=== PATIENT | female | born 1975 | race Caucasian/White ===

== ENCOUNTER → 2018-11-24 | Outpatient (CLI) | payer BC, OTHER ==
--- NOTE | 2018-11-24 11:37 | Diagnostic Imaging Report ---
INDICATION: Routine screening. COMPARISON: 11/18/2017 and 06/30/2015. TECHNIQUE: 2D and 3D bilateral screening mammography was performed with CAD. FINDINGS: Both breasts are heterogeneously dense, limiting the sensitivity of mammography. The circumscribed nodule in the upper-outer right breast appears stable. The overall breast parenchymal pattern is stable. No spiculated mass or malignant appearing microcalcifications are seen. The axillae are unremarkable. IMPRESSION: No mammographic features suspicious for malignancy are identified. ACR BI-RADS Category 2: Benign findings. Result letter will be mailed to the patient. Note: At least 10% of breast cancer is not imaged by mammography. Dictated by: Dictated on workstation # [id number]
== END ==
LOC: RAD 07:43
PROVIDERS: ATTEND Family Medicine
DX: Z12.31 Encounter for screening mammogram for malignant neoplasm of breast (principal)
CPT/HCPCS: 77067

== ENCOUNTER → 2020-02-16 | Outpatient (CLI) | payer OTHER ==
[2020-02-16 07:47] LABS: BASOPHILS % (AUTO) 0 % (0-10); EOSINOPHILS # (AUTO) 0.2 10^3/uL (0.0-0.3); EOSINOPHILS % (AUTO) 3 % (0-10); HEMATOCRIT 33 % (35-52); HEMOGLOBIN 9.9 G/DL (11.5-16.0); LYMPHOCYTES # (AUTO) 1.7 X 10^3 (1.0-4.0); LYMPHOCYTES % (AUTO) 28 % (12-44); MEAN CORPUSCULAR HEMOGLOBIN 22 PG (25-34); MEAN CORPUSCULAR HGB CONC 30 G/DL (32-36); MEAN CORPUSCULAR VOLUME 73 FL (80-99); MEAN PLATELET VOLUME 9.2 FL (7.4-10.4); MONOCYTES # (AUTO) 0.4 X 10^3 (0.0-1.0); MONOCYTES % (AUTO) 7 % (0-12); NEUTROPHILS # (AUTO) 3.7 X 10^3 (1.8-7.8); NEUTROPHILS % (AUTO) 63 % (42-75); PLATELET COUNT 306 10^3/uL (130-400); RED CELL DISTRIBUTION WIDTH 18.4 % (10.0-14.5)
[2020-02-16 08:25] LABS: ALANINE AMINOTRANSFERASE 12 U/L (0-55); ALBUMIN 3.9 GM/DL (3.2-4.5); ALKALINE PHOSPHATASE 76 U/L (40-136); BILIRUBIN,TOTAL 0.4 MG/DL (0.1-1.0); BUN/CREATININE RATIO 18; CALCIUM 8.9 MG/DL (8.5-10.1); CARBON DIOXIDE 23 MMOL/L (21-32); CHLORIDE 106 MMOL/L (98-107); CHOLESTEROL 187 MG/DL (< 200); CREATININE SERUM 0.76 MG/DL (0.60-1.30); GFR ESTIMATED > 60; GLUCOSE 97 MG/DL (70-105); HDL CHOLESTEROL 56 MG/DL (40-60); SODIUM 138 MMOL/L (135-145); TRIGLYCERIDES 102 MG/DL (<150); VLDL CHOLESTEROL 20 MG/DL (5-40)
[2020-02-16 10:08] LABS: BILIRUBIN,URINE NEGATIVE (NEGATIVE); CLARITY,URINE SL CLOUDY; COLOR,URINE YELLOW; GLUCOSE, URINE (UA) NEGATIVE (NEGATIVE); KETONES,URINE NEGATIVE (NEGATIVE); LEUKOCYTE ESTERASE ,URINE NEGATIVE (NEGATIVE); NITRITE,URINE NEGATIVE (NEGATIVE); PROTEIN,URINE NEGATIVE (NEGATIVE)
[2020-02-16 10:21] LABS: BACTERIA,URINE TRACE /HPF; WBC,URINE RARE /HPF
== END ==
LOC: LAB 07:33
PROVIDERS: ATTEND Family Medicine
DX: E55.9 Vitamin D deficiency, unspecified (principal); I10 Essential (primary) hypertension; N92.0 Excessive and frequent menstruation with regular cycle
CPT/HCPCS: 36415; 80053; 80061; 81000; 82306; 82728; 83540; 84443; 85025

== ENCOUNTER → 2020-02-18 | Outpatient (CLI) | payer OTHER ==
--- NOTE | 2020-02-18 12:29 | Diagnostic Imaging Report ---
PROCEDURE: Pelvic complete, transabdominal and transvaginal sonogram. Limited pelvic doppler. TECHNIQUE: Multiple real-time grayscale images were obtained of the pelvis in various projections transabdominally and transvaginally. Limited pelvic duplex images were obtained. HISTORY: Heavy menses COMPARISON: None available. FINDINGS: The uterus is retroverted and is normal in size. It measures 8.5 x 5.6 x 6.6 cm. The endometrial stripe measures 1.8 cm in width. No color Doppler flow is seen within the endometrium. Endometrium is echogenic. Both ovaries are normal. The right ovary measures 3.5 x 2.9 x 3.1 cm and the left ovary measures 2.5 x 2.3 x 2.2 cm. Duplex images reveal normal arterial inflow to both ovaries. There is no free pelvic fluid. IMPRESSION: 1. Thick-walled and echogenic endometrium without internal Doppler flow. This may represent blood within the endometrial cavity versus endometrial hyperplasia or malignancy. Gynecologic evaluation is warranted. Dictated by: Dictated on workstation # [id number]
== END ==
LOC: RAD 11:05
PROVIDERS: ATTEND Family Medicine
DX: N92.0 Excessive and frequent menstruation with regular cycle (principal)
CPT/HCPCS: 76830; 76856

== ENCOUNTER 2020-02-26 06:32 | Outpatient (RCR) | payer OTHER ==
[2020-02-24 13:13] LABS: BILIRUBIN,URINE NEGATIVE (NEGATIVE); CLARITY,URINE CLEAR; COLOR,URINE YELLOW; GLUCOSE, URINE (UA) NEGATIVE (NEGATIVE); KETONES,URINE NEGATIVE (NEGATIVE); NITRITE,URINE NEGATIVE (NEGATIVE); PH,URINE 5.5 (5-9); PROTEIN,URINE NEGATIVE (NEGATIVE)
[2020-02-24 13:14] LABS: LEUKOCYTE ESTERASE ,URINE 2+ (NEGATIVE)
[2020-02-24 13:24] LABS: BACTERIA,URINE FEW /HPF; RBC,URINE RARE /HPF; YEAST,URINE FEW /HPF
[~2020-02-26] VITALS: Ht 167.7 cm; Wt 122.7 kg
[~2020-02-26 06:32] MED LIST: CITA20TA9 PO; ESOM40CA52 PO; FERR142T14 PO; MEDR10TA9 PO; METO50TA7 PO; MULT-884 PO; NAPR220C61 PO; vitamin d PO
== END 2020-02-26 15:45 | disposition home or self-care (01) ==
LOC: PREOP 06:32
PROVIDERS: ATTEND Obstetrics & Gynecology
DX: Z01.818 Encounter for other preprocedural examination (principal); Z01.812 Encounter for preprocedural laboratory examination; N92.0 Excessive and frequent menstruation with regular cycle; D64.9 Anemia, unspecified; N84.0 Polyp of corpus uteri; N81.9 Female genital prolapse, unspecified; Z11.2 Encounter for screening for other bacterial diseases; Z11.59 Encounter for screening for other viral diseases
CPT/HCPCS: 81000; 87081; 87088; 87635

== ENCOUNTER → 2020-03-22 | Outpatient (CLI) | payer OTHER ==
[~2020-03-22] MED LIST changes: +ACET-93 PO; +IBUP-844 PO; +OXYC5TAB96 PO; +SIME80TA16 PO
--- NOTE | 2020-03-22 19:37 | Diagnostic Imaging Report ---
EXAM: Bilateral screening mammogram. COMPARISON: 11/24/2018, 11/18/2017 and 06/30/2015. There are no current complaints. The current study was also evaluated with a Computer Aided Detection (CAD) system. FINDINGS: The fibroglandular tissue in both breasts is heterogeneously dense. This does limit the sensitivity of this exam. Overall, there does not appear to have been any significant change when compared to the prior study. No primary or secondary sign of malignancy is noted. IMPRESSION: There is no radiographic evidence for malignancy. ACR BI-RADS Category 1: Negative. Result letter will be mailed to the patient. Note: At least 10% of breast cancer is not imaged by mammography. Dictated by: Dictated on workstation # [id number]
== END ==
LOC: RAD 07:23
PROVIDERS: ATTEND Family Medicine
DX: Z12.31 Encounter for screening mammogram for malignant neoplasm of breast (principal)
CPT/HCPCS: 77063; 77067

== ENCOUNTER → 2020-04-08 | Outpatient (CLI) | payer OTHER ==
--- NOTE | 2020-04-08 08:57 | Diagnostic Imaging Report ---
INDICATION: Distal fibular fracture. TIME OF EXAM: 8:50 AM No prior studies available for comparison. 3 views of the left ankle demonstrate an obliquely oriented fracture through the distal fibula. No significant displacement or angulation is seen. Mortise is well-maintained. Talar dome is smooth. There is a large plantar calcaneal spur. IMPRESSION: Nondisplaced obliquely oriented distal fibular fracture. Dictated by: Dictated on workstation # [id number]
== END ==
LOC: ORTHO 07:39
PROVIDERS: ATTEND Orthopaedic Surgery
DX: S82.65XA Nondisplaced fracture of lateral malleolus of left fibula, initial encounter for closed fracture (principal)
CPT/HCPCS: 73610

== ENCOUNTER → 2020-04-21 | Outpatient (CLI) | payer OTHER ==
--- NOTE | 2020-04-21 12:15 | Diagnostic Imaging Report ---
INDICATION: FRACTURE OF DISTAL FIBULA COMPARISON: 04/08/2020. FINDINGS: 3 radiographic views of the left ankle were obtained. Nonacute comminuted fracture of the distal fibula is again identified. Fracture lines are less conspicuous. There does appear to be some interval callus formation suggestive of partial interval healing. No new acute fracture or dislocation is seen. Joint spaces are intact. No unexpected radiopaque foreign bodies are identified. IMPRESSION: 1. Partially healed distal fibular fracture as described above. Dictated by: Dictated on workstation # [id number]
== END ==
LOC: ORTHO 10:47
PROVIDERS: ATTEND Orthopaedic Surgery
DX: S82.65XA Nondisplaced fracture of lateral malleolus of left fibula, initial encounter for closed fracture (principal)
CPT/HCPCS: 73610

== ENCOUNTER → 2020-05-13 | Outpatient (CLI) | payer OTHER ==
--- NOTE | 2020-05-13 11:23 | Diagnostic Imaging Report ---
EXAMINATION: Left ankle, 3 views INDICATION: Follow-up of distal fibular fracture. COMPARISON: Multiple priors, most recent performed on 04/21/2020. FINDINGS: Please note that the films are incorrectly labeled as being the right ankle, when in fact the left ankle is imaged. Continued healing of the previously demonstrated distal fibular fracture, with the fracture line now much less evident. No significant displacement is appreciated. There is no pronounced periosteal reaction. No new fracture or osseous abnormality is demonstrated. The ankle mortise is intact, including the medial and lateral clear space. No osteochondral lesion of the talar dome. There is mild persistent edema in the ankle soft tissues. Incidental note is made of an inferior calcaneal spur. IMPRESSION: Continued healing of left distal fibular fracture. No new fracture or acute osseous abnormality is appreciated. Dictated by: Dictated on workstation # [id number]
== END ==
LOC: RAD 10:15
PROVIDERS: ATTEND Orthopaedic Surgery
DX: S82.65XD Nondisplaced fracture of lateral malleolus of left fibula, subsequent encounter for closed fracture with routine healing (principal); X58.XXXD Exposure to other specified factors, subsequent encounter
CPT/HCPCS: 73610

== ENCOUNTER → 2020-06-14 | Outpatient (CLI) | payer OTHER ==
[2020-06-14 12:46] LABS: BASOPHILS % (AUTO) 0 % (0-10); EOSINOPHILS # (AUTO) 0.4 10^3/uL (0.0-0.3); EOSINOPHILS % (AUTO) 3 % (0-10); HEMATOCRIT 42 % (35-52); HEMOGLOBIN 13.9 G/DL (11.5-16.0); LYMPHOCYTES % (AUTO) 22 % (12-44); MEAN CORPUSCULAR HEMOGLOBIN 29 PG (25-34); MEAN CORPUSCULAR HGB CONC 34 G/DL (32-36); MEAN CORPUSCULAR VOLUME 85 FL (80-99); MEAN PLATELET VOLUME 10.4 FL (7.4-10.4); MONOCYTES # (AUTO) 0.7 X 10^3 (0.0-1.0); MONOCYTES % (AUTO) 5 % (0-12); NEUTROPHILS # (AUTO) 9.2 X 10^3 (1.8-7.8); NEUTROPHILS % (AUTO) 70 % (42-75); PLATELET COUNT 278 10^3/uL (130-400); RED CELL DISTRIBUTION WIDTH 15.6 % (10.0-14.5); WHITE BLOOD COUNT 13.2 10^3/uL (4.3-11.0)
== END ==
LOC: LAB 12:16
PROVIDERS: ATTEND Family Medicine
DX: D64.9 Anemia, unspecified (principal); E55.9 Vitamin D deficiency, unspecified
CPT/HCPCS: 36415; 82306; 85025

== ENCOUNTER → 2021-11-14 | Outpatient (CLI) | payer OTHER ==
[~2021-11-14] MED LIST changes: +OXC5T PO; -OXYC5TAB96 PO
--- NOTE | 2021-11-14 14:23 | Diagnostic Imaging Report ---
INDICATION: Routine screening. COMPARISON is made with prior mammograms from 03/22/2020 and 11/24/2018. 2-D and 3-D bilateral screening mammography was performed with CAD. Both breasts are heterogeneously dense, limiting the sensitivity of mammography. Intraparenchymal lymph node in the upper outer right breast appears stable. No spiculated mass or malignant-appearing microcalcifications are seen. Axillae are unremarkable. IMPRESSION: BI-RADS Category 2 No mammographic features suspicious for malignancy are identified. ACR BI-RADS Category 2: Benign findings. Result letter will be mailed to the patient. Note: At least 10% of breast cancer is not imaged by mammography. Dictated by: Dictated on workstation # [id number]
== END ==
LOC: RAD 07:20
PROVIDERS: ATTEND Obstetrics & Gynecology
DX: Z12.31 Encounter for screening mammogram for malignant neoplasm of breast (principal)
CPT/HCPCS: 77063; 77067

== ENCOUNTER → 2022-01-18 | Outpatient (CLI) | payer OTHER | LOC: ORTHO 14:46 | PROVIDERS: ATTEND Orthopaedic Surgery | DX: M17.0 Bilateral primary osteoarthritis of knee (principal) ==

== ENCOUNTER → 2022-03-14 | Outpatient (CLI) | payer OTHER ==
[~2022-03-14] MED LIST changes: +BARIUM for suspension 96% w/w (Vanilla Silq Medium Density) PO ONE; +BARIUM for suspension 98% w/w (Vanilla Silq High Density) PO ONE
--- NOTE | 2022-03-14 12:07 | Diagnostic Imaging Report ---
Indication: Preop for gastric surgery. Patient ingested effervescent crystals as well as thin and thick barium and imaging of the esophagus, stomach and proximal small bowel was performed in multiple obliquities. Total of 1.1 minutes of fluoroscopy time was utilized. 37 images were obtained. Preliminary radiograph of the abdomen is unremarkable. Esophagus has a smooth contour. No mass or strictures identified. There does appear to be a very small sliding-type hiatal hernia. No reflux was demonstrated. The stomach has normal configuration. There is normal emptying of contrast into the small bowel. Small bowel loops appear to be normal caliber. The duodenal bulb is without deformity. IMPRESSION: Small hiatal hernia. No other significant abnormalities detected. Dictated by: Dictated on workstation # [id number]
== END ==
LOC: RAD 03-07 09:00
PROVIDERS: ATTEND Surgery
DX: Z01.818 Encounter for other preprocedural examination (principal); K44.9 Diaphragmatic hernia without obstruction or gangrene
CPT/HCPCS: 74246

== ENCOUNTER 2022-04-25 07:55 | Outpatient (CLI) | payer OTHER ==
[~2022-04-25] VITALS: Ht 167 cm; Wt 136.0 kg
[~2022-04-25 07:55] MED LIST changes: -BARIUM for suspension 96% w/w (Vanilla Silq Medium Density) PO ONE; -BARIUM for suspension 98% w/w (Vanilla Silq High Density) PO ONE
[2022-04-25] MEDS ORDERED: NAPR220C11 PO (12:01)
[2022-04-25] MEDS ORDERED: BIOT1TAB PO (12:01)
[2022-04-25] MEDS ORDERED: PED18TAB2 PO (12:01)
[2022-04-25] MEDS ORDERED: CALC-939 PO (12:01)
[2022-04-25] MEDS ORDERED: FLUO20CA42 PO (12:01)
[2022-04-25] MEDS ORDERED: ASPI81TA16 PO (12:01)
== END 2022-04-25 12:17 | disposition home or self-care (01) ==
LOC: PREOP 07:55
PROVIDERS: ATTEND Surgery
DX: Z01.818 Encounter for other preprocedural examination (principal)

== ENCOUNTER 2022-04-26 11:48 | Day surgery (SDC) | payer OTHER ==
--- NOTE | 2022-04-24 20:16 | HISTORY AND PHYSICAL ---
DATE OF SERVICE: PROCEDURE DATE: 04/26/2022 ATTENDING PRIMARY CARE PHYSICIAN: Dr. Zenaida Parker. HISTORY OF PRESENT ILLNESS: The patient is a 47-year-old female with morbid obesity, who is interested in the laparoscopic gastric sleeve resection and meets the medical criteria for bariatric surgery. She reports that she began gaining the majority of her adult weight over the past 25 to 30 years when she started college. She reports that over time, she has gradually gained weight. She reports that she has tried diets in the past such as a low calorie as well as a Kido diet and reports that she did lose some weight with a low calorie diet. She also reports that she has tried exercises in the past such as recumbent bike, resistance weight training, elliptical and walking and again reports that she would lose some weight with exercise; however, would regain this weight back. She reports that she has also tried medications phentermine in the past and reports that she would lose some weight back, but after stopping the medication, she would regain her weight back. Her medical comorbidities related to obesity include degenerative joint disease of the knees, hypertension, gastroesophageal reflux disease, and depression. MEDICAL HISTORY: Degenerative joint disease of the knees, hypertension, gastroesophageal reflux disease, vitamin D deficiency, depression. PAST SURGICAL HISTORY: Right eye surgery at age 1 in 1975, partial hysterectomy in 2019. ALLERGIES: No known drug allergies. MEDICATIONS: Aspirin 81 mg daily, Osteo Bi-Flex, multivitamin, Nexium 40 mg daily, fluoxetine, vitamin D weekly, metoprolol 50 mg b.i.d., losartan potassium 100 mg daily. SOCIAL HISTORY: Previous for tobacco smoke half a pack per day for 20 years, quit in 2020. Social for alcohol. FAMILY HISTORY: Maternal grandmother, breast cancer, sister DVT. VITAL SIGNS: Blood pressure is 136/70. Current weight is 310 pounds at 5 feet 6 inches with a body mass index of 50.0. REVIEW OF SYSTEMS: This is a well-nourished female in no acute distress. She is not experiencing any shortness of breath or difficulty breathing. No chest pain, palpitations or diaphoresis. No nausea, vomiting or abdominal pain. No diarrhea or constipation. No red blood per rectum nor any dark tarry stools. No fever or chills. No recent inadvertent weight loss. All other review of systems negative. PHYSICAL EXAMINATION: CHEST: Clear. Good breath sounds bilaterally. HEART: Regular, no murmurs. EXTREMITIES: No lower extremity edema. Negative Homans sign. HEENT: No scleral icterus. NECK: No cervical lymphadenopathy. ABDOMEN: Soft, nontender, nondistended. SKIN: Warm, dry and pink. NEUROLOGIC: Awake, alert and oriented x3. ASSESSMENT AND PLAN: A 47-year-old female with morbid obesity and medical comorbidities related to obesity including degenerative joint disease of the knees, hypertension, gastroesophageal reflux disease, and depression. She is interested in the laparoscopic gastric sleeve resection and does meet the medical criteria for bariatric surgery. At this time, we will proceed with the necessary tests and evaluations including an overnight oximetry study, upper GI contrast study, nutrition and psychology consult, clearance from her primary care physician as well as physician monitored dieting. If the overnight oximetry study does show any abnormalities and we will proceed with a formal sleep study for proper diagnosis and treatment of obstructive sleep apnea. Once we have obtained all the necessary tests and evaluations, then we will proceed with scheduling her for a laparoscopic gastric sleeve resection. The risks and benefits of the procedure as well as the procedure and home care instructions were explained to the patient. It was also discussed with her in depth about preoperative as well as postoperative diet and exercise. She verbalized understanding of instructions and agrees to proceed as planned. At this time, we will proceed with the necessary tests and evaluations and once she has completed these, we will schedule her for the laparoscopic gastric sleeve resection. Job ID: [id number] DocumentID: [id number] Dictated Date: 04/20/2022 09:37:35 Sales Support Manager Date: 04/20/2022 13:22:28 Dictated By: LEATHA BARNES APRN
[~2022-04-26] VITALS: Ht 167 cm; Wt 140.8 kg
[2022-04-26] VITALS (12 sets, daily range): BP systolic 91–131; BP diastolic 48–86
[~2022-04-26 11:48] MED LIST changes: +ASPI81TA16 PO; +BIOT1TAB PO; +CALC-939 PO; +FLUO20CA42 PO; +NAPR220C11 PO; +PED18TAB2 PO
--- NOTE | 2022-04-26 11:55 | Progress Note-Pre Operative ---
Pre-Operative Progress Note H&P Reviewed The H&P was reviewed, patient examined and no changes noted. Date Seen by Provider: Apr 26, 2022 Time Seen by Provider: 11:54 Date H&P Reviewed: Apr 26, 2022 Time H&P Reviewed: 11:50 Pre-Operative Diagnosis: Morbid obesity, HTN, GERD, Depression, degenerative joint disease of knees LEATHA BARNES APRN Apr 26, 2022 11:55
[2022-04-26] MEDS ORDERED: LACTATED RINGERS 1,000 ML IV PRN (12:15)
[2022-04-26] MEDS ORDERED: ceFAZolin 2 GM IV Premixed 50 ML IV ONE (12:15)
[2022-04-26] MEDS: LACTATED RINGERS 1,000 ML IV PRN ×2 (12:32→16:18)
[2022-04-26] MEDS ORDERED: BUP/EPI 0.5% 1:200,000 (MARCAINE) 10ML VIAL IJ ONE (14:08)
[2022-04-26] MEDS ORDERED: ONDANSETRON 4 MG/2 ML (SDV) Z0FRAN IV PRN (14:15)
[2022-04-26] MEDS ORDERED: fentaNYL INJ 1,000 MCG in NS (IVPB) 80 ML IV SCH (14:15)
[2022-04-26] MEDS ORDERED: NS IV 1000 ML 1,000 ML IV SCH (14:15)
[2022-04-26] MEDS ORDERED: diphenhydrAMINE 50 MG/ML INJ (BENADRYL) IVP PRN (14:15)
[2022-04-26] MEDS ORDERED: diphenhydrAMINE 50 MG/ML INJ (BENADRYL) IV PRN (14:15)
[2022-04-26] MEDS ORDERED: METOCLOPRAMIDE INJ 10 MG/2 ML (REGLAN) IV PRN (14:15)
[2022-04-26] MEDS ORDERED: NALOXONE 0.4 MG/ML 1 ML (NARCAN) VIAL IV PRN (14:15)
[2022-04-26] MEDS ORDERED: ONDANSETRON 4 MG/2 ML (SDV) Z0FRAN ONE (14:17)
[2022-04-26] MEDS ORDERED: fentaNYL INJ 100 MCG/2 ML AMP ONE (14:17)
[2022-04-26] MEDS ORDERED: LIDOCAINE PF 2% 5 ML (XYLOCAINE) VIAL ONE (14:17)
[2022-04-26] MEDS ORDERED: ROCURONIUM 50 MG/5 ML (ZEMURON) VIAL IV ONE (14:17)
[2022-04-26] MEDS ORDERED: proPOfol 200 MG/20 ML (DIPRIVAN) VIAL IV ONE (14:17)
[2022-04-26] MEDS ORDERED: MIDAZOLAM 2 MG/2 ML (VERSED) VIAL ONE (14:18)
[2022-04-26] MEDS ORDERED: GLYCOPYRROLATE 0.2 MG/ML (ROBINUL) 2 ML VIAL ONE (15:51)
[2022-04-26] MEDS ORDERED: HYDROmorphone 2 MG/ML VIAL (DILAUDID) ONE ×2 (15:55→17:25)
[2022-04-26] MEDS ORDERED: SUGAMMADEX 500 MG/5 ML VIAL (BRIDION) IV ONE (16:25)
[2022-04-26] MEDS ORDERED: SEVOFLURANE (ULTANE) 15 ML INHAL SOLN ONE (16:26)
[2022-04-26] MEDS ORDERED: KETOROLAC 30 MG/ML VIAL ONE (16:39)
--- NOTE | 2022-04-26 16:44 | Progress Note-Post Operative ---
Post-Operative Progess Note Surgeon (s)/Trolley Wire Installer (s) Surgeon KLELY HARRISON MD Trolley Wire Installer: светлана sequeira SHOWROOM CONSULTANT Pre-Operative Diagnosis Morbid obesity, HTN, GERD, Depression, degenerative joint disease of knees Post-Operative Diagnosis same Procedure & Operative Findings Date of Procedure 04/26/22 Procedure Performed/Findings laparoscopic gastric sleeve resection. Anesthesia Type get Estimated Blood Loss Estimated blood loss (mL): minimal Specimens/Packing Specimens Removed stomach KELLY HARRISON MD Apr 26, 2022 16:44
--- NOTE | 2022-04-26 16:45 | Discharge Inst-Surgical ---
D/C Lap Instructions-HUNTER Follow Up Appt in 2 weeks Activity as tolerated No driving for 24 hours No driving while on pain medications Incentive Spirometry use every 2 hours while awake Phase 1 clear liquid diet for next 2 weeks. Symptoms to Report: Fever over 101 degree F, Nausea/Vomiting Infection Signs and Symptoms to report: Increased redness, Foul odor of wound, Increased drainage Bathing instructions: May shower Operative Area Clean/Dry; Keep incision clean/dry If any problems/questions: Contact your physician or go to Emergency Room KELLY HARRISON MD Apr 26, 2022 16:45
[2022-04-26] MEDS ORDERED: HYDROmorphone 2 MG/ML VIAL (DILAUDID) IV ONE (17:00)
[2022-04-26] MEDS ORDERED: ONDANSETRON 4 MG/2 ML (SDV) Z0FRAN IVP PRN (17:00)
[2022-04-26] MEDS: METOCLOPRAMIDE INJ 10 MG/2 ML (REGLAN) IVP SCH ×2 (18:33→23:10)
[2022-04-26] MEDS: 1/2 NS W/KCL 20 MEQ/L 1,000 ML IV SCH ×2 (18:33→22:15)
[2022-04-26] MEDS: ONDANSETRON 4 MG/2 ML (SDV) Z0FRAN IVP SCH ×2 (18:34→23:10)
[2022-04-26] MEDS: metroNIDAZOLE 500MG/100ML IVPB 100 ML IV SCH (18:34)
[2022-04-26] MEDS ORDERED: LACTATED RINGERS 1,000 ML IV ONE (21:30)
[2022-04-26] MEDS: ceFAZolin 2 GM IV Premixed 50 ML IV SCH (22:16)
[2022-04-26] MEDS: ENOXAPARIN 40 MG/0.4 ML (LOVENOX) SYR SC SCH (22:16)
[2022-04-27] VITALS (7 sets, daily range): BP systolic 92–120; BP diastolic 54–64
[2022-04-27] MEDS: RT-ALBUTEROL SULF 2.5 MG/3 ML PRE-MIX VIAL INH SCH ×4 (00:55→22:49)
[2022-04-27] MEDS: metroNIDAZOLE 500MG/100ML IVPB 100 ML IV SCH ×2 (02:20→11:07)
[2022-04-27] MEDS ORDERED: LACTATED RINGERS 1,000 ML IV ONE (03:30)
[2022-04-27] MEDS: 1/2 NS W/KCL 20 MEQ/L 1,000 ML IV SCH ×4 (03:35→21:21)
--- NOTE | 2022-04-27 04:35 | OPERATIVE REPORT ---
DATE OF SERVICE: 04/26/2022 ATTENDING PRIMARY CARE PHYSICIAN: Zenaida Parker MD PREOPERATIVE DIAGNOSES: Morbid obesity, hypertension, gastroesophageal reflux disease and degenerative joint disease. POSTOPERATIVE DIAGNOSES: Morbid obesity, hypertension, gastroesophageal reflux disease and degenerative joint disease. PROCEDURE: Laparoscopic gastric sleeve resection. SURGEON: Kelly Harrison MD. OPERATIONAL RISK MANAGER: Senthil Galindo APRN. ANESTHESIA: General endotracheal. ESTIMATED BLOOD LOSS: Minimal. FINDINGS: Hepatomegaly. DISPOSITION: The patient tolerated the procedure well. INDICATIONS: The patient is a 47-year-old female who is in our surgical weight loss program for the gastric sleeve resection and does meet the medical criteria for bariatric surgery. She reports that she began to gain the majority of her adult weight, approximately 25 years ago when she started college. She states that over time, she has gradually gained more weight. She has tried a number of diet and exercise attempts with no success. She has tried diet programs including low-calorie diets, ketogenic diet, and reported losing some weight; however, would regain the weight back. She has also tried exercise regimens including recumbent bike, resistance weight training, elliptical dog trainer, treadmill and again would lose some weight with the exercise; however, would regain this back. She has also tried medications including phentermine however, after discontinuation of medication would regain her weight back. Her medical comorbidities related to her obesity include hypertension, degenerative joint disease, gastroesophageal reflux disease, and depression. DESCRIPTION OF PROCEDURE: The patient was brought to the operating room, laid supine on the table. After adequate IV pain and sedative medications and general endotracheal intubation, the abdomen was prepped and draped in standard surgical fashion. A 0.5% Marcaine with epinephrine was then used to anesthetize the overlying skin in the left upper abdominal quadrant and a transverse skin incision made using a 15 blade. An 0 silk suture was applied to the medial aspect incision for retraction and a Veress needle inserted with a low opening pressure of 0 mmHg and the abdomen was then insufflated to 15 mmHg pressure. The Veress needle removed and a 5 mm XL trocar placed followed by a 5 mm 45-degree angle laparoscope visualizing the peritoneal cavity. A 4-quadrant abdominal exploration was performed. There was hepatomegaly, mild liver steatosis. No hiatal hernia identified. Under direct visualization, we then proceeded to place a midabdominal left to midline 10 mm port after the skin and peritoneal lining were anesthetized using 0.5% Marcaine with epinephrine and a transverse skin incision made using a 15 blade. In a similar manner, a midabdominal right of midline 15 mm port was placed followed by a right upper abdominal quadrant 5 mm port. The epigastric region was then anesthetized and a transverse skin incision made using 11 blade. A tract was then created through the abdominal wall layers using a trocar to a 5 mm port and through this opening, a medium sized Nathansen liver retractor was placed and the left lobe of the liver retracted anteriorly and superiorly. The patient was then placed in steep reverse Trendelenburg position. We then measured 6 cm from the pylorus along the greater curvature and marked this area with a marking pen. We then proceeded to dissect the gastrocolic ligament next to the stomach using the Sonicision entering the lesser sac. We first proceeded with inferior dissection until we were approximately 2 cm below our marking. We then proceeded cephalad taking the short gastric vessels. The angle of his connective tissue fibers as well as the posterior stomach were then dissected until the left nathan of the diaphragm was identified with visualization of good hemostasis. A 36-Kinyarwanda ViSiGi gastric tube was then placed and directed into the pylorus under direct visualization. Using this as a staple line guide, we then proceeded with our gastric sleeve resection, we first proceeded with a 45 mm black load. This was then followed by 160 mm black load followed by 360 mm purple loads leaving approximately 2 cm next to the gastroesophageal junction and completing our gastric sleeve resection. At the staple line corners, clips were placed with 5 mm clips. A leak test was then performed to 35 mmHg air through the ViSiGi with no leak identified. Tisseel fibrin glue was then placed onto the staple line and the omentum placed onto the staple line. The stomach was then removed through the 15 mm port site. The fascia and peritoneum to the 10 and 15 mm port sites were then closed under direct visualization using a Diallo-Julito device and 0 Vicryl suture. The abdomen was desufflated and remaining ports removed. All skin incisions were closed using 4-0 Monocryl running subcuticular sutures. Wounds were then cleaned and covered with Dermabond. The patient tolerated the procedure well. We will admit her 23-hour observation and proceed with DVT prophylaxis with early ambulation, calf SCDs as well as Lovenox injections. She may also have ice chips today and tomorrow morning, we will start a phase 1 clear liquid diet and when she is able to tolerate 60 mL of fluids every 30 minutes, has adequate pain control with oral pain medication and is ambulating well, we will then discharge her home and where she will be instructed to proceed with a phase 1 clear liquid diet for the next 2 weeks. She obviously will be instructed to do no heavy lifting or exertion for the next two weeks as well. Job ID: [id number] DocumentID: [id number] Dictated Date: 04/26/2022 16:56:07 Deputy District Customs Director Date: 04/27/2022 04:35:11 Dictated By: KELLY HARRISON MD
[2022-04-27] MEDS: ceFAZolin 2 GM IV Premixed 50 ML IV SCH ×2 (05:06→15:42)
[2022-04-27] MEDS: METOCLOPRAMIDE INJ 10 MG/2 ML (REGLAN) IVP SCH ×2 (05:07→11:07)
[2022-04-27] MEDS: ONDANSETRON 4 MG/2 ML (SDV) Z0FRAN IVP SCH ×2 (05:07→10:26)
[2022-04-27 05:33] LABS: HEMATOCRIT 37 % (35-52); HEMOGLOBIN 12.2 g/dL (11.5-16.0); MEAN CORPUSCULAR HEMOGLOBIN 31 pg (25-34); MEAN CORPUSCULAR HGB CONC 33 g/dL (32-36); MEAN CORPUSCULAR VOLUME 93 fL (80-99); MEAN PLATELET VOLUME 11.7 fL (9.0-12.2); PLATELET COUNT 199 10^3/uL (130-400); WHITE BLOOD COUNT 9.8 10^3/uL (4.3-11.0)
[2022-04-27] MEDS: SENNA W/DOCUSATE (SENOKOT S) TABLET PO SCH (08:27)
[2022-04-27] MEDS: ENOXAPARIN 40 MG/0.4 ML (LOVENOX) SYR SC SCH (08:28)
[2022-04-27] MEDS: PANTOPRAZOLE 40 MG (PROTONIX) VIAL IV SCH (08:31)
--- NOTE | 2022-04-27 10:40 | Anesthesia-General Post-Op ---
General Patient Condition Mental Status/LOC: Same as Preop Cardiovascular: Satisfactory Nausea/Vomiting: Absent Respiratory: Satisfactory Pain: Controlled Complications: Absent Post Op Complications Complications None Follow Up Care/Instructions Patient Instructions None needed. Anesthesia/Patient Condition Patient Condition Patient is doing well, no complaints, stable vital signs, no apparent adverse anesthesia problems. No complications reported per nursing. EVANGELIST MARX CRNA Apr 27, 2022 10:40
[2022-04-27] MEDS ORDERED: METOCLOPRAMIDE INJ 10 MG/2 ML (REGLAN) IVP PRN (14:15)
[2022-04-27] MEDS: ENOXAPARIN 60 MG/0.6 ML (LOVENOX) SYR SC SCH (21:21)
--- NOTE | 2022-04-27 23:05 | Progress Note ---
Subjective Date Seen by a Provider: Apr 27, 2022 Time Seen by a Provider: 11:00 Subjective/Events-last exam up in chair. moderate nausea. just starting phase I clear liquids.pain c ontrolled with fiscal agent however has not started PO meds. no fever/chills. Objective Exam Vital Signs Date Time Temp Pulse Resp B/P (MAP) Pulse Ox O2 Delivery O2 Flow Rate FiO2 04/27/22 22:49 90 Room Air 04/27/22 20:09 95 Room Air 04/27/22 19:04 37.2 72 20 117/56 (76) 94 Room Air 04/27/22 15:19 36.8 71 20 104/55 (71) 94 Room Air 04/27/22 15:07 95 Room Air 04/27/22 12:57 37.0 62 16 120/56 (77) 94 Room Air 04/27/22 08:00 97 Nasal Cannula 1.00 04/27/22 08:00 37.5 76 18 108/54 (72) 94 Room Air 04/27/22 06:55 94 Room Air 04/27/22 05:36 18 04/27/22 05:16 98/64 (75) 04/27/22 03:24 37.2 60 16 92/57 (69) 92 Room Air 04/26/22 23:37 36.8 61 18 92/61 (71) 93 Room Air I & O 04/27/22 07:00 Intake Total 1660 ml Output Total 755 ml Balance 905 ml Capillary Refill : General Appearance: No Apparent Distress HEENT: PERRL/EOMI Respiratory: Chest Non Tender, Decreased Breath Sounds Cardiovascular: Regular Rate, Rhythm Gastrointestinal: soft, tenderness Extremity: Normal Capillary Refill Neurologic/Psychiatric: Alert, Oriented x3 Skin: Normal Color Lymphatic: No Adenopathy Results Lab Laboratory Tests 04/27/22 04:58: White Blood Count 9.8, Red Blood Count 3.97, Hemoglobin 12.2, Hematocrit 37, Mean Corpuscular Volume 93, Mean Corpuscular Hemoglobin 31, Mean Corpuscular Hemoglobin Concent 33, Red Cell Distribution Width 13.0, Platelet Count 199, Mean Platelet Volume 11.7 Microbiology 04/26/22 MRSA Screen - Final, Complete MRSA not isolated Assessment/Plan Assessment/Plan Assess & Plan/Chief Complaint s/p lap gastric sleeve resection. increase ambulation. encourage more PO liquid intake. transition to PO pain meds. KELLY HARRISON MD Apr 27, 2022 23:05
[2022-04-28 03:05] VITALS: BP 123/58
[2022-04-28] MEDS: ONDANSETRON 4 MG/2 ML (SDV) Z0FRAN IVP PRN ×2 (03:12→09:40)
[2022-04-28] MEDS: 1/2 NS W/KCL 20 MEQ/L 1,000 ML IV SCH (03:12)
[2022-04-28 07:15] VITALS: BP 132/70
[2022-04-28] MEDS: RT-ALBUTEROL SULF 2.5 MG/3 ML PRE-MIX VIAL INH SCH (07:45)
[2022-04-28] MEDS: PANTOPRAZOLE 40 MG (PROTONIX) VIAL IV SCH (08:34)
[2022-04-28] MEDS: ENOXAPARIN 60 MG/0.6 ML (LOVENOX) SYR SC SCH (08:35)
[2022-04-28] MEDS: SENNA W/DOCUSATE (SENOKOT S) TABLET PO SCH (08:35)
[2022-04-28 11:04] VITALS: BP 151/68
--- NOTE | 2022-04-28 11:18 | Progress Note ---
Subjective Date Seen by a Provider: Apr 28, 2022 Time Seen by a Provider: 10:30 Subjective/Events-last exam Patient reports doing well. Having nausea but no vomiting. Tolerating clear liquid diet and ambulating. Objective Exam Vital Signs Date Time Temp Pulse Resp B/P (MAP) Pulse Ox O2 Delivery O2 Flow Rate FiO2 04/28/22 11:04 151/68 Room Air 0.00 0 04/28/22 08:05 92 Room Air 1.00 04/28/22 08:02 90 Room Air 04/28/22 07:15 36.8 74 20 132/70 (90) 92 Room Air 04/28/22 06:02 18 04/28/22 03:05 36.4 78 20 123/58 (79) 92 Room Air 04/27/22 23:14 36.9 93 20 106/59 (75) 93 Room Air 04/27/22 22:49 90 Room Air 04/27/22 20:09 95 Room Air 04/27/22 19:04 37.2 72 20 117/56 (76) 94 Room Air 04/27/22 15:19 36.8 71 20 104/55 (71) 94 Room Air 04/27/22 15:07 95 Room Air 04/27/22 12:57 37.0 62 16 120/56 (77) 94 Room Air I & O 04/28/22 07:00 Intake Total 1380 ml Output Total 450 ml Balance 930 ml Capillary Refill : General Appearance: No Apparent Distress, WD/WN Neck: Normal Inspection, Supple Respiratory: No Accessory Muscle Use, No Respiratory Distress Cardiovascular: Regular Rate, Rhythm, No Edema Gastrointestinal: normal bowel sounds, soft, tenderness, other (Abdominal incisions C/D/I) Extremity: Normal Inspection, Normal Range of Motion Neurologic/Psychiatric: Alert, Oriented x3 Results Lab Microbiology 04/26/22 MRSA Screen - Final, Complete MRSA not isolated Assessment/Plan Assessment/Plan Assess & Plan/Chief Complaint A 47 year old female with morbid obesity, HTN, GERD who is S/P lap gastric sleeve VSS Tolerating diet and ambulating Continue clear liquid diet as directed Ambulation OK to DC home LEATHA BARNES FOOT DRILL OPERATOR Apr 28, 2022 11:18
== END 2022-04-28 11:11 | disposition home or self-care (01) ==
LOC: SDC 11:48 → 4TH 17:53 → SDC 04-28 11:11
PROVIDERS: ATTEND Surgery
DX: E66.01 Morbid (severe) obesity due to excess calories (principal); K21.9 Gastro-esophageal reflux disease without esophagitis; I10 Essential (primary) hypertension; Z87.891 Personal history of nicotine dependence; Z79.899 Other long term (current) drug therapy
CPT/HCPCS: 36415; 85027; 87081; 94640; 94760

== ENCOUNTER → 2022-06-22 | Outpatient (CLI) | payer OTHER ==
[2022-06-22 16:36] LABS: HEMATOCRIT 39 % (35-52); MEAN CORPUSCULAR HEMOGLOBIN 30 pg (25-34); MEAN CORPUSCULAR HGB CONC 34 g/dL (32-36); MEAN CORPUSCULAR VOLUME 90 fL (80-99); MEAN PLATELET VOLUME 11.4 fL (9.0-12.2); PLATELET COUNT 199 10^3/uL (130-400); WHITE BLOOD COUNT 6.3 10^3/uL (4.3-11.0)
[2022-06-22 16:43] LABS: ALBUMIN 3.6 GM/DL (3.2-4.5)
[2022-06-22 16:44] LABS: POTASSIUM 3.6 MMOL/L (3.6-5.0)
[2022-06-22 16:45] LABS: CALCIUM 8.8 MG/DL (8.5-10.1)
[2022-06-22 16:46] LABS: TOTAL PROTEIN 6.5 GM/DL (6.4-8.2)
[2022-06-22 16:48] LABS: BILIRUBIN,TOTAL 0.3 MG/DL (0.1-1.0)
[2022-06-22 16:49] LABS: CREATININE SERUM 0.65 MG/DL (0.60-1.30)
[2022-06-22 17:05] LABS: BILIRUBIN,URINE NEGATIVE (NEGATIVE); CLARITY,URINE CLEAR; COLOR,URINE YELLOW; GLUCOSE, URINE (UA) NEGATIVE (NEGATIVE); KETONES,URINE 3+ (NEGATIVE); LEUKOCYTE ESTERASE ,URINE NEGATIVE (NEGATIVE); NITRITE,URINE NEGATIVE (NEGATIVE); PROTEIN,URINE NEGATIVE (NEGATIVE)
[2022-06-22 17:57] LABS: BACTERIA,URINE TRACE /HPF
== END ==
LOC: LAB 16:07
PROVIDERS: ATTEND Family Medicine
DX: I10 Essential (primary) hypertension (principal); R60.9 Edema, unspecified
CPT/HCPCS: 36415; 80053; 81000; 84443; 85027

== ENCOUNTER → 2022-06-26 | Outpatient (CLI) | payer OTHER | LOC: ORTHO 17:14 | PROVIDERS: ATTEND Orthopaedic Surgery | DX: M17.11 Unilateral primary osteoarthritis, right knee (principal); M17.12 Unilateral primary osteoarthritis, left knee ==

== ENCOUNTER → 2022-10-04 | Outpatient (CLI) | payer OTHER | LOC: ORTHO 11:45 | PROVIDERS: ATTEND Orthopaedic Surgery | DX: M17.0 Bilateral primary osteoarthritis of knee (principal) ==

== ENCOUNTER → 2022-11-01 | Outpatient (CLI) | payer OTHER ==
--- NOTE | 2022-11-01 17:32 | Diagnostic Imaging Report ---
INDICATION: Injury while walking, pain. COMPARISON: No priors. Four view complete right knee series performed. FINDINGS: There is profound medial greater than lateral tibiofemoral compartmental arthritis. There is [id number] with subarticular sclerosis and bony remodeling and marginal osteophytes. The lateral view showed no convincing evidence for a joint effusion and patellofemoral osteoarthritis is moderate to severe with bulky spurring off its superior greater than inferior pole. IMPRESSION: Severe arthritis, most profound medially, however no fracture, joint effusion or convincing opaque loose body. Dictated by: Dictated on workstation # [id number]
== END ==
LOC: RAD 14:18
PROVIDERS: ATTEND Orthopaedic Surgery
DX: M17.11 Unilateral primary osteoarthritis, right knee (principal)
CPT/HCPCS: 73564

== ENCOUNTER → 2022-11-20 | Outpatient (CLI) | payer OTHER ==
[2022-11-20 07:42] LABS: HEMATOCRIT 43 % (35-52); HEMOGLOBIN 14.9 g/dL (11.5-16.0); MEAN CORPUSCULAR HEMOGLOBIN 32 pg (25-34); MEAN CORPUSCULAR HGB CONC 35 g/dL (32-36); MEAN CORPUSCULAR VOLUME 92 fL (80-99); MEAN PLATELET VOLUME 10.5 fL (9.0-12.2); PLATELET COUNT 240 10^3/uL (130-400); WHITE BLOOD COUNT 7.8 10^3/uL (4.3-11.0)
[2022-11-20 07:45] LABS: CLARITY,URINE CLEAR; COLOR,URINE YELLOW; GLUCOSE, URINE (UA) NEGATIVE (NEGATIVE); KETONES,URINE TRACE (NEGATIVE); LEUKOCYTE ESTERASE ,URINE NEGATIVE (NEGATIVE); NITRITE,URINE NEGATIVE (NEGATIVE); PH,URINE 7.5 (5-9); PROTEIN,URINE 1+ (NEGATIVE)
[2022-11-20 08:02] LABS: BILIRUBIN,TOTAL 0.5 MG/DL (0.1-1.0); CALCIUM 9.3 MG/DL (8.5-10.1); CREATININE SERUM 0.75 MG/DL (0.60-1.30); POTASSIUM 3.9 MMOL/L (3.6-5.0); TOTAL PROTEIN 7.3 GM/DL (6.4-8.2)
[2022-11-20 08:05] LABS: BACTERIA,URINE MODERATE /HPF; BILIRUBIN,URINE 1+ (NEGATIVE); RBC,URINE RARE /HPF
--- NOTE | 2022-11-20 15:27 | Diagnostic Imaging Report ---
INDICATION: Routine screening. COMPARISON: 11/14/2021 and 03/22/2020. TECHNIQUE: 2D and 3D bilateral screening mammography was performed with CAD. FINDINGS: Both breasts are heterogeneously dense, limiting the sensitivity of mammography. A benign-appearing nodule in the upper outer right breast is stable. No new mass or malignant-appearing microcalcifications are seen. The axillae are unremarkable. IMPRESSION: No mammographic features suspicious for malignancy are identified. ACR BI-RADS Category 2: Benign findings. Result letter will be mailed to the patient. Note: At least 10% of breast cancer is not imaged by mammography. Dictated by: Dictated on workstation # [id number]
== END ==
LOC: RAD 07:21
PROVIDERS: ATTEND Family Medicine
DX: Z12.31 Encounter for screening mammogram for malignant neoplasm of breast (principal)
CPT/HCPCS: 36415; 77063; 77067; 80053; 80061; 81000; 82306; 84443; 85027

== ENCOUNTER → 2022-12-27 | Outpatient (CLI) | payer OTHER | LOC: ORTHO 08:37 | PROVIDERS: ATTEND Orthopaedic Surgery | DX: M17.0 Bilateral primary osteoarthritis of knee (principal) ==

== ENCOUNTER 2023-05-15 05:46 | Outpatient (CLI) | payer OTHER ==
[~2023-05-15] VITALS: Ht 167.6 cm; Wt 90.7 kg
[2023-05-15] MEDS ORDERED: HYDR12.56 PO (17:03)
[2023-05-15] MEDS ORDERED: GLUC-132 PO (17:03)
[2023-05-15] MEDS ORDERED: ACET-2650 PO (17:03)
[2023-05-15] MEDS ORDERED: LACTATED RINGERS 1,000 ML IV STA (17:03)
[2023-05-15] MEDS ORDERED: SACC250C9 PO (17:03)
[2023-05-15] MEDS ORDERED: POTA99CA PO (17:03)
[2023-05-15] MEDS ORDERED: MELA5CAP PO (17:03)
[2023-05-15] MEDS ORDERED: INUL2TAB8 PO (17:03)
[2023-05-15] MEDS ORDERED: MECO10005 PO (17:03)
[2023-05-15] MEDS ORDERED: DOCU100T7 PO (17:03)
== END 2023-05-15 17:06 ==
LOC: PREOP 05:46
PROVIDERS: ATTEND Surgery
DX: Z01.818 Encounter for other preprocedural examination (principal)

== ENCOUNTER 2023-05-27 06:58 | Day surgery (SDC) | payer OTHER ==
[~2023-05-27] VITALS: Ht 167.6 cm; Wt 90.7 kg
[~2023-05-27 06:58] MED LIST changes: +ACET-2650 PO; +DOCU100T7 PO; +GLUC-132 PO; +HYDR12.56 PO; +INUL2TAB8 PO; +MECO10005 PO; +MELA5CAP PO; +POTA99CA PO; +SACC250C9 PO
[2023-05-27] MEDS ORDERED: LACTATED RINGERS 1,000 ML IV STA (07:00)
[2023-05-27 07:13] VITALS: BP 128/83
[2023-05-27] MEDS ORDERED: PROPOFOL INJECTION 50 ML IV ONE (07:17)
[2023-05-27] MEDS ORDERED: MIDAZOLAM 2 MG/2 ML (VERSED) VIAL ONE (07:17)
[2023-05-27 08:15] VITALS: BP 99/54
[2023-05-27 08:20] VITALS: BP 103/58
--- NOTE | 2023-05-27 08:32 | Discharge Inst-Simple/Standard ---
Discharge Inst-Standard Patient Instructions/Follow Up Plan of Care/Instructions/FU: 2 weeks Masha Activity as Tolerated: Yes Discharge Diet: Regular Diet (high fiber) ALESSANDRA EDWARD DO May 27, 2023 08:32
--- NOTE | 2023-05-27 08:34 | Progress Note-Post Operative ---
Post-Operative Progess Note Surgeon (s)/Fitting Room Maintenance Mechanic (s) Surgeon ALESSANDRA EDWARD DO Fitting Room Maintenance Mechanic: na Pre-Operative Diagnosis screening colonoscopy Post-Operative Diagnosis diverticulosis, colon polyps Procedure & Operative Findings Date of Procedure 05/27/23 Procedure Performed/Findings colonoscopy c hot bx polypectomy x 3 Anesthesia Type per head of geography Estimated Blood Loss Estimated blood loss (mL): none Specimens/Packing Specimens Removed colon polyps ALESSANDRA EDWARD DO May 27, 2023 08:34
[2023-05-27 08:52] VITALS: BP 103/58
--- NOTE | 2023-05-27 10:18 | Anesthesia-General Post-Op ---
MAC Patient Condition Mental Status/LOC: Same as Preop Cardiovascular: Satisfactory Nausea/Vomiting: Absent Respiratory: Satisfactory Pain: Controlled Complications: Absent Post Op Complications Complications None Follow Up Care/Instructions Patient Instructions None needed. Anesthesiology Discharge Order Discharge Order Patient is doing well, no complaints, stable vital signs, no apparent adverse anesthesia problems. No complications reported per nursing. ALDEN VERA CRNA May 27, 2023 10:18
--- NOTE | 2023-05-27 18:43 | OPERATIVE REPORT ---
DATE OF SERVICE: 05/27/2023 PREOPERATIVE DIAGNOSIS: Screening colonoscopy. POSTOPERATIVE DIAGNOSES: Colon polyps, diverticulosis. PROCEDURE: Colonoscopy with hot biopsy polypectomy x3. SURGEON: Alessandra Flanagan DO ANESTHESIA: Per SALES REPRESENTATIVES. ESTIMATED BLOOD LOSS: None. COMPLICATIONS: None. INDICATIONS: The patient is a 48-year-old female, needing colonoscopy. She understands risks and benefits of procedure and wished to proceed. Consent was signed and in chart. DESCRIPTION OF PROCEDURE: The patient was taken to endoscopy suite, placed in left lateral recumbent position. Timeout was performed. Digital rectal exam was performed. No palpable polyps, masses or ulcerations, masses or ulcerations. Scope was inserted in the rectum and advanced all the way to the cecum with minimal difficulty. Prep was adequate. Scope was slowly retracted back. No polyps, masses or ulcerations in the cecum, ascending colon. In the transverse colon, 2 polyps were present, which hot biopsy polypectomies were performed. Scope was then continuously retracted back. No polyps, masses or ulcerations were noted in the remainder of the transverse and descending colon. Sigmoid colon had a little bit of diverticulosis present. Also had a polyp, which hot biopsy polypectomy was performed. Scope was then continuously retracted back in the rectum where it was also retroflexed noting no other pathology. Scope was returned to its normal position, slowly withdrawn until completely removed. The patient tolerated the procedure well without any complications, taken to recovery room in stable condition. RECOMMENDATIONS: The patient will have repeat colonoscopy in 5 years. Any issues before that, she will be seen at that time. She will follow up in 2 weeks to discuss pathology results. Job ID: [id number] DocumentID: [id number] Dictated Date: 05/27/2023 12:52:35 Sliding Joint Maker Date: 05/27/2023 18:41:00 Dictated By: ALESSANDRA FLANAGAN DO
== END 2023-05-27 09:00 | disposition home or self-care (01) ==
LOC: ENDO 06:58
PROVIDERS: ATTEND Surgery
DX: Z12.11 Encounter for screening for malignant neoplasm of colon (principal); K63.5 Polyp of colon; K57.30 Diverticulosis of large intestine without perforation or abscess without bleeding; E66.9 Obesity, unspecified; Z68.32 Body mass index [BMI] 32.0-32.9, adult

== ENCOUNTER → 2023-06-11 | Outpatient (CLI) | payer OTHER | LOC: ORTHO 14:10 | PROVIDERS: ATTEND Orthopaedic Surgery | DX: M17.0 Bilateral primary osteoarthritis of knee (principal) ==